=== PATIENT | female | born 1990 | race African-American/Black ===

== ENCOUNTER 2019-08-12 22:27 | Emergency (ER) | payer MEDICAID ==
[~2019-08-12] VITALS: Ht 160 cm; Wt 77.0 kg
[~2019-08-12 22:27] MED LIST: METHYLPREDNISOLONE; NAPROXEN; TYLENOL
[2019-08-13 00:42] VITALS: BP 131/79
== END 2019-08-13 00:42 | disposition home or self-care (01) ==
LOC: ER 22:27
DX: R07.89 Other chest pain (principal); R00.2 Palpitations; F12.10 Cannabis abuse, uncomplicated; Z91.018 Allergy to other foods
CPT/HCPCS: 71045; 81025; 93005; 99283

== ENCOUNTER 2023-03-28 12:58 | Emergency (ER) | payer MEDICAID, MEDICARE ==
[~2023-03-28] VITALS: Ht 167.6 cm; Wt 81.0 kg
[2023-03-28 13:04] VITALS: BP 160/116; PULSE 91; RESP 20; TEMP 98.3; O2SAT 100
[2023-03-28] MEDS ORDERED: KETOROLAC 30MG/ML VIAL IM ONE (14:30)
== END 2023-03-28 14:38 | disposition left against medical advice (07) ==
LOC: ER 12:58
DX: R51.9 Headache, unspecified (principal); M54.2 Cervicalgia
CPT/HCPCS: 99281